=== PATIENT | female | born 1970 | race Caucasian/White ===

== ENCOUNTER 2017-04-07 07:02 | Day surgery (SDC) | payer BC ==
--- NOTE | 2017-03-25 19:13 | HP ---
DATE OF ADMISSION: 04/07/2017 HISTORY OF PRESENT ILLNESS: This is the first orthopedic outpatient admission for surgical approach of the right wrist for acute carpal tunnel syndrome. The patient has had problems with the wrist for years, but only recently increased to the point where it affects her daily functional activity. She also underwent nerve conduction evaluations identifying the carpal tunnel and median nerve problem. After failed treatment, she is now being scheduled for an outpatient right carpal tunnel release. The procedure has been outlined to her and she understands the procedure and has consented to it. ALLERGIES: Levaquin, also she is allergic to the Band-Aid adhesives. CURRENT MEDICATIONS: Zyrtec, Wellbutrin, vitamin D, vitamin B12, pramipexole along with vitamin B6 and vitamin C. PAST MEDICAL HISTORY: Include pernicious anemia, depression, and umbilical hernia. PAST SURGICAL HISTORY: Positive. She has had previous C-sections, gastric bypass, hysterectomy, and inguinal hernia. Notes no anesthesia problems or complications. Bleeding history is negative. Blood clot history is negative. SOCIAL HISTORY: She is a smoker, 1-2 packs per day. Has smoked for 20 years. Alcohol is rare. PHYSICAL EXAMINATION: GENERAL: Reveals a well-developed, well-nourished 46-year-old female in moderate distress. HEAD, EYES, EARS, NOSE, AND THROAT: Normocephalic. NECK: Supple. CHEST: Clear. COR: Regular rate. ABDOMEN: Soft. : Intact. EXTREMITIES: Examination of the right wrist reveals positive pain to pressure of the carpal tunnel area. There is mild thenar atrophy. The patient has significant Tinel's examination for median nerve irritation. ASSESSMENT: Right carpal tunnel syndrome. PLAN: Plan is for the patient to undergo right carpal tunnel release. MMSHASHI /[id number] MARJORIE
[~2017-04-07 07:02] MED LIST: Lactated Ringers 1,000 ML IV SCH; Lidocaine 1%/Sod Bicarbonate in NS 8.4% 1 ML Syringe IDERM PRN; Sodium Chloride 0.9% 10 ML Syringe FLUSH PRN
--- NOTE | 2017-04-07 07:27 | PCM.PREANE ---
Preanesthetic Assessment - Anesthesia/Transfusion/Family Hx Anesthesia History: Prior Anesthesia Without Reaction Family History of Anesthesia Reaction: Yes (MOM GETS A RASH) Transfusion History: Prior Transfusion Without Reaction - Review of Systems General: No Symptoms Pulmonary: No Symptoms Cardiovascular: No Symptoms Gastrointestinal: No Symptoms Neurological: No Symptoms Other: Reports: None - Physical Assessment NPO Status Date: 04/06/17 NPO Status Time: 00:00 Pulse: 83 O2 Sat by Pulse Oximetry: 97 Respiratory Rate: 16 Blood Pressure: 138/95 Temperature: 36.8 C Height: 1.47 m Weight: 122 kg ASA Class: 2 Mental Status: Alert & Oriented x3 Airway Class: Mallampati = 1 Dentition: Reports: Normal Dentition Thyro-Mental Finger Breadths: 3 Mouth Opening Finger Breadths: 3 ROM/Head Extension: Full Lungs: Clear to Auscultation, Normal Respiratory Effort Cardiovascular: Regular Rate, Regular Rhythm, No Murmurs - Imaging/EKG Impressions: ON CHART SR - Allergies Allergies/Adverse Reactions: Allergies Allergy/AdvReac Type Severity Reaction Status Date / Time adhesive Allergy Cannot Verified 04/06/17 10:30 Remember levofloxacin [From Levaquin] Allergy Cannot Verified 04/06/17 10:30 Remember - Blood Blood Available: No Product(s) Available: None - Anesthesia Plan Pre-Op Medication Ordered: None - Acknowledgements Anesthesia Type Planned: [place] Pt an Appropriate Candidate for the Planned Anesthesia: Yes Alternatives and Risks of Anesthesia Discussed w Pt/Guardian: Yes Pt/Guardian Understands and Agrees with Anesthesia Plan: Yes PreAnesthesia Questionnaire HEENT History: Reports: Allergic Rhinitis, Impaired Vision, Sinusitis, Other ( See Below) Other HEENT History: uses reading glasses Cardiovascular History: Reports: None Respiratory History: Reports: Other (See Below) Other Respiratory History: cough Gastrointestinal History: Reports: Other (See Below) Other Gastrointestinal History: palpable abdominal mass, umbilical hernia, gastric ulcer Genitourinary History: Reports: None 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: Musculoskeletal History: Reports: Other (See Below) Other Musculoskeletal History: bilateral carpal tunnel syndrome, right foot plantar fasciitis, restless leg syndrome, right wrist pain Neurological History: Reports: Migraines Psychiatric History: Reports: None Endocrine/Metabolic History: Reports: Vitamin D Deficiency, Other (See Below) Other Endocrine/Metabolic History: vitamin b 12 deficiency Hematologic History: Reports: Anemia, Iron Deficiency Immunologic History: Reports: None Oncologic (Cancer) History: Reports: None Dermatologic History: Reports: Other (See Below) Other Dermatologic History: lipoma of right upper extremity - Past Surgical History HEENT Surgical History: Reports: Tonsillectomy Cardiovascular Surgical History: Reports: None Respiratory Surgical History: Reports: None GI Surgical History: Reports: Bariatric Procedure, Colonoscopy, Hernia Repair/ Other Female Surgical History: Reports: Section, Hysterectomy Male Surgical History: Reports: None Neurological Surgical History: Reports: None Oncologic Surgical History: Reports: None Dermatological Surgical History: Reports: None - SUBSTANCE USE Smoking Status *Q: Current Every Day Smoker Tobacco Use Within Last Twelve Months: Cigarettes Second Hand Smoke Exposure: Yes Days Per Week of Alcohol Use: 0 Number of Drinks Per Day: 1 Total Drinks Per Week: 0 Recreational Drug Use History: No - HOME MEDS Home Medications: Home Meds Ascorbic Acid [Vitamin C] 1,000 mg PO DAILY 04/06/17 [History] Cetirizine [ZyrTEC] 10 mg PO DAILY 04/06/17 [History] Cholecalciferol (Vitamin D3) [Vitamin D3] 3,000 unit PO DAILY 04/06/17 [History] Cyanocobalamin (Vitamin B-12) [B-12 Compliance] 1,000 mcg SQ MO 04/06/17 [ History] Ferrous Sulfate [Iron] 325 mg PO DAILY 04/06/17 [History] Folic Acid 1 mg PO DAILY 04/06/17 [History] Pramipexole Di-HCl [Pramipexole Dihydrochloride] 1 - 2 tab PO BID 04/06/17 [ History] Vitamin B Complex 1 cap PO DAILY 04/06/17 [History] buPROPion HCl [Wellbutrin Xl] 300 mg PO DAILY 04/06/17 [History] - CURRENT (IN HOUSE) MEDS Current Meds: Current Medications Lactated Ringer's (Ringers, Lactated) 1,000 mls @ 125 mls/hr IV ASDIRECTED TRELL Lidocaine/Sodium Bicarbonate (Buffered Lidocaine 1% In Ns 8.4%) 0.25 ml IDERM ONETIME PRN PRN Reason: Prior to IV Start Sodium Chloride (Saline Flush) 10 ml FLUSH ASDIRECTED PRN PRN Reason: Keep Vein Open
[2017-04-07] MEDS ORDERED: Lidocaine 1% 4 ML ONE (07:45)
[2017-04-07] MEDS ORDERED: Propofol 200 MG/20 ML SDV ONE ×2 (07:45→08:27)
[2017-04-07] MEDS ORDERED: Midazolam 1 MG/ML 2 ML SDV ONE (07:45)
[2017-04-07] MEDS ORDERED: fentaNYL 100 MCG/2 ML SDV ONE (07:45)
[2017-04-07] MEDS ORDERED: Sodium Bicarbonate 8.4% 50 MEQ/50 ML SDV ONE (07:46)
[2017-04-07] MEDS ORDERED: Lidocaine 0.5% 50 ML SDV ONE (07:46)
[2017-04-07] MEDS ORDERED: Acetaminophen/HYDROcodone 325-5 MG Tab PO PRN (07:50)
[2017-04-07] MEDS ORDERED: Ondansetron 4 MG/2 ML SDV IVPUSH PRN (07:50)
[2017-04-07] MEDS ORDERED: ceFAZolin 1 GM Vial ONE (08:12)
[2017-04-07] MEDS ORDERED: Lactated Ringers 1,000 ML ONE (08:43)
[2017-04-07] MEDS ORDERED: Dexamethasone 4 MG/ML 5 ML MDV ONE (08:45)
[2017-04-07] MEDS ORDERED: Ketorolac 30 MG/ML SDV IVPUSH PRN (08:53)
[2017-04-07] MEDS: fentaNYL 100 MCG/2 ML SDV IVPUSH PRN ×2 (09:00→09:20)
--- NOTE | 2017-04-07 12:50 | OR ---
DATE OF OPERATION: 04/07/2017 SURGEON: Rustam Sutton MD PREOPERATIVE DIAGNOSIS: Severe carpal tunnel syndrome, right wrist, failed treatment. POSTOPERATIVE DIAGNOSIS: Severe carpal tunnel syndrome, right wrist, failed treatment. ANESTHESIA: Haivana Nakya block with sedation. OPERATION PERFORMED: Right carpal tunnel release, mini incision. DESCRIPTION OF PROCEDURE: The patient was taken to the operative room in a supine position, placed under a light sedation with Haivana Nakya block anesthesia of the right upper extremity. After adequate anesthesia, the operation proceeded with evaluation and approach to the carpal tunnel area with an incision being placed approximately 1 cm distal to the flexion crease and parallel to the radial aspect of the ring finger for approximately 1.5 cm. Penetrating through the skin and the subcutaneous tissues, the palmar fascia was then identified and this was released, exposing the carpal ligament. Immediately identified was a muscular structure line across the carpal ligament itself. This was brushed away to expose the ligament and then direct entry into the ligament, carpal canal was then made paralleling the median nerve to the ulnar aspect. The release was carried by direct visualization proximally and distally and then the operation proceeded with placement of the mini instrument for release of the carpal ligament proximally to just above the flexion crease. Once that was released, the operation proceeded distally and the completion of the carpal ligament was released to the palmar fat pad. The nerve was then inspected. The vasa vasorum returned very nicely. It was carefully checked to make sure no fibrous bands remained and once that was satisfied, both proximally and distally, the operation proceeded with irrigation of the wound area. The skin was then closed with a horizontal 4- 0 Prolene mattress suture reinforced by a vertical 5-0 Prolene. The patient was placed in standard dressings and splint. She tolerated the procedure well, left the operating room in stable condition to room for recovery. ESTIMATED BLOOD LOSS: MMODAL /[id number]
== END 2017-04-07 09:50 | disposition home or self-care (01) ==
LOC: JD.SDS 07:02
PROVIDERS: ATTEND Specialist
DX: G56.03 Carpal tunnel syndrome, bilateral upper limbs (principal); F17.210 Nicotine dependence, cigarettes, uncomplicated; D50.9 Iron deficiency anemia, unspecified; G25.81 Restless legs syndrome; K21.9 Gastro-esophageal reflux disease without esophagitis; K58.9 Irritable bowel syndrome, unspecified; F32.9 Major depressive disorder, single episode, unspecified; D51.0 Vitamin B12 deficiency anemia due to intrinsic factor deficiency; G43.909 Migraine, unspecified, not intractable, without status migrainosus; E66.01 Morbid (severe) obesity due to excess calories; Z68.43 Body mass index [BMI] 50.0-59.9, adult; Z91.048 Other nonmedicinal substance allergy status; Z88.1 Allergy status to other antibiotic agents; Z98.890 Other specified postprocedural states; Z90.710 Acquired absence of both cervix and uterus; Z98.84 Bariatric surgery status; Z79.899 Other long term (current) drug therapy
CPT/HCPCS: 64721; A9270; J0690; J1100; J1885; J2250; J3010; J7120; J2704

== ENCOUNTER 2024-05-24 07:39 | Day surgery (SDC) | payer BC ==
[~2024-05-24 07:39] MED LIST changes: -Lactated Ringers 1,000 ML IV SCH; -Lidocaine 1%/Sod Bicarbonate in NS 8.4% 1 ML Syringe IDERM PRN; +Sodium Chloride 0.9% 10 ML Syringe FLUSH SCH
[2024-05-24] MEDS: Lactated Ringers 1,000 ML IV SCH (08:00)
[2024-05-24] MEDS ORDERED: Propofol 200 MG/20 ML SDV ONE ×3 (08:45→09:18)
[2024-05-24] MEDS ORDERED: Lidocaine 1% 4 ML ONE (08:50)
== END 2024-05-24 10:10 | disposition home or self-care (01) ==
LOC: JD.SDS 07:39
PROVIDERS: ATTEND Surgery
DX: Z12.11 Encounter for screening for malignant neoplasm of colon (principal); D12.3 Benign neoplasm of transverse colon; D12.4 Benign neoplasm of descending colon; K57.30 Diverticulosis of large intestine without perforation or abscess without bleeding; F41.9 Anxiety disorder, unspecified; Z79.899 Other long term (current) drug therapy; Z91.048 Other nonmedicinal substance allergy status; Z88.8 Allergy status to other drugs, medicaments and biological substances; Z88.2 Allergy status to sulfonamides
CPT/HCPCS: 45380; 45385; J2003; J2704; J7120; 00811